=== PATIENT | female | born 1965 | race Caucasian/White ===

== ENCOUNTER 2016-06-22 22:06 | Emergency (ER) | payer BC, OTHER ==
[~2016-06-22] VITALS: Ht 162.6 cm; Wt 56.0 kg
[~2016-06-22 22:06] MED LIST: CEPH500C3 PO; FISH1000 PO; LEVA500T33 PO; LORT5TAB PO; VENL37.585 PO
[2016-06-22 22:21] VITALS: BP 115/88; PULSE 97; RESP 20; TEMP 99; O2SAT 95
--- NOTE | 2016-06-22 22:38 | PD ---
HPI Chief Complaint: Respiratory Symptoms Time Seen by Provider: 22:34 Travel History International Travel<30 days: No Contact w/Intl Traveler<30days: No Traveled to known affect area: No History of Present Illness HPI This 50-year-old female is complaining of pleuritic chest pain. She says that a few days ago she was having this pain on the right side. The last 3 days been on the left side. The pain is aggravated by deep breathing and also by bending over. She feels like she's been sick the last few weeks. It started after she cleaned the house that she believes that a lot of black mold in it. She says that in the past she has gotten frequent bouts of pleurisy and that this feels like her balance. She has no history of DVT. She does not smoke. She says she does get relief with Z-Ant and steroids when she gets this illness. PFSH Past Medical History Arthritis: Yes (OSTEOARTHRITIS) Cancer: No High Cholesterol: Yes Diabetes: No Glaucoma: No Hepatitis: No Hiatal Hernia: No Hypertension: No Thyroid Disease: No ?: Not LMP: MENOPAUSE : 2 Para: 1 Miscarriage: 1 Past Surgical History Abdominal Surgery: Yes (stomach tumor removed) Cardiac Surgery: No Section: Yes (1997) Ear Surgery: No Endocrine Surgery: No Eye Surgery: No Genitourinary Surgery: No Gynecologic Surgery: Yes (C SECTION) Oral Surgery: Yes (DENTAL EXTRACTIONS X 18 LAST MONTH) Pacemaker: No Thoracic Surgery: No Other Surgery: Yes (BREAST AUGMENTATION) Social History Alcohol Use: No Tobacco Use: Yes (1 PPD) Substance Use: No Allergies-Medications (Allergen,Severity, Reaction): Coded Allergies: No Known Allergies (Verified , 06/22/16) Reported Meds & Prescriptions Reported Meds & Active Scripts Active Percocet (Oxycodone-Acetaminophen) 7.5-325 mg Tab 1 Tab PO Q4H PRN Prednisone 20 Mg Tab 20 Mg PO DIRECTED 40 MG twice a day x 3 days, then 20 MG daily x 3 days, then 10 MG daily x 3 days Zithromax Z-Ant (Azithromycin) 250 Mg Dspk 250 Mg PO DIRECTED 500 MG (2 tabs) day 1, then 1 tab days 2-5. Review of Systems General / Constitutional: No: Fever, Chills Eyes: No: Diploplia, Blurred Vision HENT: No: Headaches, Vertigo Cardiovascular: No: Chest Pain or Discomfort, Palpitations Respiratory: No: Cough, Shortness of Breath, Hemoptysis Gastrointestinal: No: Nausea, Vomiting Genitourinary: No: Urgency, Frequency Musculoskeletal: No: Myalgias, Arthralgias Skin: No Rash Neurologic: No: Weakness, Dizziness Endocrine: No: Cold Intolerance Hematologic/Lymphatic: No: Easy Bruising Physical Exam Narrative GENERAL: Well-developed female SKIN: Focused skin assessment warm/dry. HEAD: Atraumatic. Normocephalic. EYES: Pupils equal and round. No scleral icterus. No injection or drainage. ENT: No nasal bleeding or discharge. Mucous membranes pink and moist. NECK: Trachea midline. No JVD. CARDIOVASCULAR: Regular rate and rhythm. No murmur appreciated. RESPIRATORY: No accessory muscle use. Occasional rhonchi. Breath sounds equal bilaterally. GASTROINTESTINAL: Abdomen soft, non-tender, nondistended. Hepatic and splenic margins not palpable. MUSCULOSKELETAL: No obvious deformities. No clubbing. No cyanosis. No edema. NEUROLOGICAL: Awake and alert. No obvious cranial nerve deficits. Motor grossly within normal limits. Normal speech. PSYCHIATRIC: Appropriate mood and affect; insight and judgment normal. Data Data Last Documented VS Vital Signs Date Time Temp Pulse Resp B/P Pulse Ox O2 Delivery O2 Flow Rate FiO2 06/22/16 22:46 97 18 95 Room Air 06/22/16 22:21 99.0 115/88 Orders Complete Blood Count With Diff (06/22/16 22:34) Basic Metabolic Panel (Bmp) (06/22/16 22:34) Chest, Pa & Lat (06/22/16 22:35) Azithromycin (Zithromax) (06/22/16 23:15) Prednisone (Deltasone) (06/22/16 23:15) Ibuprofen (Motrin) (06/22/16 23:15) Oxycodone-Acetamin 5-325 Mg (Percocet (06/22/16 23:15) Labs Laboratory Tests Test 06/22/16 22:44 White Blood Count 17.0 TH/MM3 Red Blood Count 3.80 MIL/MM3 Hemoglobin 12.4 GM/DL Hematocrit 36.5 % Mean Corpuscular Volume 96.0 FL Mean Corpuscular Hemoglobin 32.8 PG Mean Corpuscular Hemoglobin 34.1 % Concent Red Cell Distribution Width 13.0 % Platelet Count 594 TH/MM3 Mean Platelet Volume 6.9 FL Neutrophils (%) (Auto) 72.1 % Lymphocytes (%) (Auto) 21.5 % Monocytes (%) (Auto) 5.5 % Eosinophils (%) (Auto) 0.4 % Basophils (%) (Auto) 0.5 % Neutrophils # (Auto) 12.2 TH/MM3 Lymphocytes # (Auto) 3.7 TH/MM3 Monocytes # (Auto) 0.9 TH/MM3 Eosinophils # (Auto) 0.1 TH/MM3 Basophils # (Auto) 0.1 TH/MM3 CBC Comment DIFF FINAL Differential Comment Sodium Level 139 MEQ/L Potassium Level 3.9 MEQ/L Chloride Level 103 MEQ/L Carbon Dioxide Level 30.7 MEQ/L Anion Gap 5 MEQ/L Blood Urea Nitrogen 16 MG/DL Creatinine 1.00 MG/DL Estimat Glomerular Filtration 59 ML/MIN Rate Random Glucose 100 MG/DL Calcium Level 8.6 MG/DL MDM Medical Decision Making Medical Screen Exam Complete: Yes Emergency Medical Condition: Yes Medical Record Reviewed: Yes Differential Diagnosis Differential includes pneumonia, pleurisy Narrative Course Chest x-ray shows a right middle lobe infiltrate. There is also mention of some nodular areas and CT is recommended after resolution of the infiltrate. I have advised the patient of this and given her a copy of the x-ray. She is a patient of Dr. Garcia. She'll be placed on Zithromax. Her white count is 17 ,000. She appears stable. She has not vomited. She is not hypoxic. Diagnosis Primary Impression: Pneumonia Scripts Oxycodone-Acetaminophen (Percocet)7.5-325 mg Tab1 Tab PO Q4H PRN (PAIN) #20 TAB Ref 0 Prov:Eduardo Alonso MD 06/22/16 Prednisone 20 Mg Tab20 Mg PO DIRECTED #11 TAB Ref 0 40 MG twice a day x 3 days, then 20 MG daily x 3 days, then 10 MG daily x 3 days Prov:Eduardo Alonso MD 06/22/16 Azithromycin (Zithromax Z-Ant)250 Mg [id number] Mg PO DIRECTED #1 DSPK Ref 0 500 MG (2 tabs) day 1, then 1 tab days 2-5. Prov:Eduardo Alonso MD 06/22/16 Disposition: 01 DISCHARGE HOME Condition: Stable Eduardo Alonso MD Jun 22, 2016 22:38
--- NOTE | 2016-06-22 22:56 | RADHPO ---
EXAM DATE/TIME: 06/22/2016 22:41 [facility] COMPARISON: No previous studies available for comparison. INDICATIONS : Chest pain and cough. MEDICAL HISTORY : None. SURGICAL HISTORY : None. ENCOUNTER: Initial ACUITY: 1 week PAIN SCORE: 8/10 LOCATION: Bilateral chest FINDINGS: PA and lateral views of the chest showed focal intra-alveolar infiltrate within the medial segment of the right middle lobe. There are 2 areas of nodularity involving the right upper lobe and right midl gavin. Each measures approximately 1.5 cm. Left lung is clear. No effusions. Heart is normal in size. M ild sclerotic curvature to the spine. CONCLUSION: 1. Right middle lobe infiltrate. Likely infectious. 2. 2 areas of nodularity involving the right midlung and right upper lobe. Following resolution of th e acute symptoms I would suggest a CT of the thorax to further evaluate. Phan Munoz Jr., MD on June 22, 2016 at 22:53 Board Certified Radiologist. This report was verified electronically.
[2016-06-22 23:03] LABS: AUTOMATED NEUTROPHIL # 12.2 TH/MM3 (1.8-7.7); BASOPHIL # 0.1 TH/MM3 (0-0.2); BASOPHIL % 0.5 % (0.0-2.0); EOSINOPHIL # 0.1 TH/MM3 (0-0.4); EOSINOPHIL % 0.4 % (0.0-4.0); HEMATOCRIT 36.5 % (35.0-46.0); LYMPH % 21.5 % (9.0-44.0); LYMPHOCYTE # 3.7 TH/MM3 (1.0-4.8); MEAN CORPUSCULAR HEMOGLOBIN 32.8 PG (27.0-34.0); MEAN CORPUSCULAR HGB CONC 34.1 % (32.0-36.0); MONO % 5.5 % (0.0-8.0); NEUT % 72.1 % (16.0-70.0); PLATELET COUNT 594 TH/MM3 (150-450); POTASSIUM 3.9 MEQ/L (3.5-5.1)
[2016-06-22 23:06] LABS: BICARBONATE 30.7 MEQ/L (21.0-32.0)
[2016-06-22] MEDS ORDERED: ZITHTAB PO (23:08)
[2016-06-22] MEDS ORDERED: PERC7.5T13 PO (23:08)
[2016-06-22] MEDS ORDERED: PRED20 PO (23:08)
[2016-06-22 23:11] LABS: HEMO FLAGS DIFF FINAL
[2016-06-22] MEDS ORDERED: oxyCODONE/ACETAMINOPHEN 5 MG/325 MG TAB PO ONE (23:15)
[2016-06-22] MEDS ORDERED: AZITHROMYCIN 250 MG TAB PO ONE (23:15)
[2016-06-22] MEDS ORDERED: IBUPROFEN 400 MG TAB PO ONE (23:15)
[2016-06-22] MEDS ORDERED: predniSONE 20 MG TAB PO ONE (23:15)
[2016-06-23 00:08] VITALS: BP 120/82; PULSE 88; RESP 18; O2SAT 96
== END 2016-06-23 00:08 | disposition home or self-care (01) ==
LOC: PHED 22:06
DX: J18.9 Pneumonia, unspecified organism (principal); R91.8 Other nonspecific abnormal finding of lung field; E78.00 Pure hypercholesterolemia, unspecified; F17.200 Nicotine dependence, unspecified, uncomplicated; Z87.39 Personal history of other diseases of the musculoskeletal system and connective tissue
CPT/HCPCS: 71020; 80048; 85025; 99284; J7512